=== PATIENT | female | born 1955 | race Caucasian/White ===

== ENCOUNTER → 2018-01-15 | Outpatient (CLI) | payer OTHER ==
--- NOTE | 2018-01-17 13:00 | MM ---
Reason for exam: screening (asymptomatic). Last mammogram was performed 4 years and 9 months ago. History: Patient is postmenopausal. Family history of breast cancer in sister at age 44. Physical Findings: A clinical breast exam by your physician is recommended on an annual basis and results should be correlated with mammographic findings. MG Screening Mammo w CAD Bilateral CC and MLO view(s) were taken. Prior study comparison: April 21, 2013, left diagnostic mammogram w/CAD. October 16, 2012, [facility] DIGITAL LEFT BREAST MAMMOGRAM w/CAD. October 09, 2012, bilateral digital screening mammo w/CAD. May 15, 2011, bilateral digital screening mammo w/CAD. There are scattered fibroglandular densities. Asymmetric density central right MLO view is more defined. ASSESSMENT: Incomplete: need additional imaging evaluation, BI-RAD 0 RECOMMENDATION: Special view mammogram of the right breast. If lesion persists on supplemental views, image directed ultrasound is recommended. [facility] will attempt to contact patient to return for supplemental views and ultrasound if indicated.
== END | disposition home or self-care (01) ==
LOC: RADMAMWWP 07:40
PROVIDERS: ATTEND Obstetrics & Gynecology
DX: Z12.31 Encounter for screening mammogram for malignant neoplasm of breast (principal)
CPT/HCPCS: 77067

== ENCOUNTER → 2018-01-18 | Outpatient (CLI) | payer OTHER ==
--- NOTE | 2018-01-18 11:03 | MM ---
Reason for exam: additional evaluation requested from abnormal screening. Last mammogram was performed less than 1 month ago. History: Patient is postmenopausal. Family history of breast cancer in sister at age 44. Physical Findings: Nurse did not find any significant physical abnormalities on exam. MG Work Up Mamm w CAD RT CC and MLO view(s) were taken of the right breast. Technologist: Sarita Arciniega, RT (R)(M) Prior study comparison: January 15, 2018, bilateral MG screening mammo w CAD. April 21, 2013, left diagnostic mammogram w/CAD. The breast tissue is heterogeneously dense. This may lower the sensitivity of mammography. Finding: There is a suspicious, equal, spiculated architectural distortion located 3 cm from the nipple in the upper quadrant, middle position of the right breast. New finding since April 21, 2013. These results were verbally communicated with the patient and result sheet given to the patient on 01/18/18. ASSESSMENT: Suspicious, BI-RAD 4 RECOMMENDATION: Stereotactic core biopsy of the right breast. Called Dr. March with mammographic findings and has scheduled an appointment for the patient for 01/24/18 at 3:[address] Valles. PRELIMINARY REPORT CALLED AND FAXED TO DR. VALLES ON 01/18/18.
== END ==
LOC: RADMAMWWP 07:25
PROVIDERS: ATTEND Obstetrics & Gynecology
DX: R92.8 Other abnormal and inconclusive findings on diagnostic imaging of breast (principal)
CPT/HCPCS: 77065

== ENCOUNTER → 2018-02-07 | Day surgery (SDC) | payer OTHER ==
[2018-02-07 09:33] VITALS: BP 125/85; PULSE 74; RESP 16; TEMP 98.4; BMI 27.9
--- NOTE | 2018-02-07 16:31 | MM ---
EXAMINATION TYPE: MG discontinued stereo core RT DATE OF EXAM: 02/07/2018 COMPARISON: 01/18/2018, 01/15/2018 mammograms CLINICAL HISTORY: Abnormal mammogram, single view TECHNIQUE: Prepped for Stereotactic guided core biopsy of right breast. FINDINGS: The procedure of stereotactic guided core biopsy was explained to the patient. Benefits, a lternatives, and risks were discussed. An informed consent was then obtained. A time out was performed. The region of interest was examined. Multiple attempts to localize a distortion of the medial lateral projections was performed. A persistent suspicious area could not be identified. No targeting could be performed. Procedure was terminated prior to skin incision. This was discussed with the patient. A precautionary follow-up right breast mammogram in 6 months be recommended. IMPRESSION: 1. Unsuccessful stereotactic core biopsy. Unable to identify abnormality by stereotactic projections. Recommendations: 1. Precautionary follow-up right breast mammogram 2 views in 3-D in 6 months. 2. Patient should continue monthly self breast exam.
== END ==
LOC: RADMAMWWP 09:08
PROVIDERS: ATTEND Surgery
DX: Z53.8 Procedure and treatment not carried out for other reasons (principal); R92.8 Other abnormal and inconclusive findings on diagnostic imaging of breast

== ENCOUNTER 2018-04-17 08:53 | Day surgery (SDC) | payer OTHER ==
[2018-04-15 11:28] VITALS: BMI 27.3
[~2018-04-17 08:53] MED LIST: DEXAMETHASONE SOD PHOSPHATE 10 MG/ML 1 ML VIAL IV ONE; DEXAMETHASONE SOD PHOSPHATE 4 MG/ML 1 ML VIAL IV ONE; FAMOTIDINE 20 MG/2 ML VIAL IV ONE; LACTATED RINGERS 1,000 ML IV SCH; LIDOCAINE 1% 20 ML VIAL (10MG/ML) FOR IV START INTRADERMA PRN; ONDANSETRON 4 MG/2 ML VIAL IVP ONE; SCOPOLAMINE 1.5MG/72HR PATCH TRANSDERM ONE; ceFAZolin 1,000 MG in DEXTROSE/WATER 1 50ML.BAG IV ONE
[2018-04-17] MEDS: OXYMETAZOLINE 0.05% NASL SPRAY 1 SPRAY BOTTLE NASAL ONE ×5 (09:50→10:21)
[2018-04-17 10:01] LABS: Glucose,Whole Blood 87 mg/dL (75-99)
[2018-04-17] MEDS ORDERED: PROPOFOL 10 MG/ML 20 ML VIAL IV ONE (11:03)
[2018-04-17] MEDS ORDERED: SUCCINYLCHOLINE CHLORIDE 100 MG/5 ML SYR IV ONE (11:03)
[2018-04-17] MEDS ORDERED: LIDOCAINE 1% INJ 10MG/ML (20 ML MDV) ONE (11:03)
[2018-04-17] MEDS ORDERED: fentaNYL (PF) 50 MCG/ML 2 ML AMP ONE (11:03)
[2018-04-17] MEDS ORDERED: MIDAZOLAM 2 MG/2 ML VIAL ONE (11:03)
[2018-04-17] MEDS ORDERED: LIDOCAINE 1%-EPI 1:100,000 20 ML VIAL SQ ONE (11:26)
[2018-04-17] MEDS ORDERED: BACITRACIN 500 UNIT/GM OINT 28.4 GM TUBE TOPICAL ONE (11:26)
--- NOTE | 2018-04-17 12:27 | P.OP ---
Date of Procedure: 04/17/18 Preoperative Diagnosis: Deviated nasal septum Inferior turbinate hypertrophy Chronic sinusitis Sinonasal polyposis Postoperative Diagnosis: Same Procedure(s) Performed: Septoplasty Outfracture and submucous resection of the inferior turbinates Bilateral endoscopic sinus surgery with polypectomy including bilateral maxillary antrostomy with removal of tissue from the maxillary sinuses, bilateral anterior posterior ethmoidectomy, bilateral sphenoidotomy with exploration and bilateral frontal sinusotomy with exploration Anesthesia: TONYA Surgeon: Eddie Gibbons Estimated Blood Loss (ml): 20 Pathology: other (Nasal septal bone and cartilage and sinus contents) Condition: stable Disposition: PACU Indications for Procedure: This is a 63-year-old white female whose had difficulties with chronic nasal airway obstruction and congestion as well as decreased sense of smell and recurrent sinusitis. She has a deviated septum as well as chronic sinusitis based on history and computed tomography scan Operative Findings: Nasal septum deviated to the left anteriorly to the right posteriorly there are moderate size polyps in the middle meatus bilaterally as well as inferior turbinate hypertrophy bilaterally Description of Procedure: The patient was brought in the operative suite and placed in a supine position. The patient underwent induction of general anesthesia with oral endotracheal intubation without difficulty. The patient was prepped and draped in usual aseptic fashion. Orbits were in the operating field for monitoring throughout the case and the computed tomography scan was on the computer screen for review throughout the case also. 1% lidocaine with 1-100,000 epinephrine was infused subcu closely both sides nasal septum as well as lateral nasal wall bilaterally and anterior tips the middle turbinates bilaterally. While this was taking vasoconstrictive effect the inferior turbinates were infractured with [place] elevator partial submucous resection inferior turbinates performed with Coblator this ablating a portion of the submucosal soft tissue and then outfractured with the [place] elevator. A left hemitransfixion incision was made with the mucoperichondrial and mucoperiosteal flap on the left elevated. Bony cartilaginous junction was disarticulated and the mucoperiosteal flap on the right was elevated. Bony nasal septal deformities were removed Maranda forceps. An inferior cartilaginous strip was removed leaving a full 1.5 cm caudal strut. Checking intranasally this corrected the nasoseptal deformities and the hemitransfixion incision was closed with running 4-0 chromic suture. Full 0 endoscopic examination is performed bilaterally. Beginning on the left the middle turbinate was medialized with a [place] elevator. The gross polyps were debrided with microdebrider. Maxillary ostium was located with a ballpoint probe and infundibulotomy was performed followed by uncinectomy. The maxillary ostium was enlarged at the expense anterior and posterior fontanelle taking care anteriorly not to injure the lacrimal bone. The anterior posterior ethmoidectomy were then performed to the level skull base including polypectomy. Polyps were removed from the maxillary sinuses with giraffe forceps under endoscopic visualization also. Bilateral frontal sinusotomy was removed and dilator as well as sphenoidotomy. The sinuses were explored. There was mucosal thickening but no masses or polyps noted. Attention was then turned to the right where the procedures were followed as they were on the left including medialization middle turbinate infundibulotomy uncinectomy max antrostomy with removal of tissue from the maxillary sinuses anterior posterior ethmoidectomy frontal sinusotomy and sphenoidotomy with exploration of all sinuses. Once this was completed a small pledget of standard nasal pore nasal dressing was placed the middle meatus under direct visualization bilaterally. Bilateral Cope airway splint coated bacitracin ointment were placed in nasal cavities and sutured trans-septally with a 4-0 nylon suture. Patient was then suctioned in oral gastric fashion. Patient was then allowed to emerge from general anesthesia and was extubated in the operating suite and transferred to postop recovery area in satisfactory condition.
[2018-04-17] MEDS: HYDROmorphone 1 MG/ML 1 ML SYRINGE IVP PRN ×2 (12:32→12:38)
[2018-04-17 12:37] VITALS: TEMP 97.7
[2018-04-17 13:33] VITALS: RESP 16
[2018-04-17] MEDS ORDERED: HYDROcodone/APAP 5-325MG 1 EACH TAB PO ONE (13:54)
[2018-04-17 14:29] VITALS: BP 127/80; PULSE 70
== END 2018-04-17 14:59 | disposition home or self-care (01) ==
LOC: OR 08:53
PROVIDERS: ATTEND Otolaryngology
DX: J34.2 Deviated nasal septum (principal); J34.3 Hypertrophy of nasal turbinates; J32.8 Other chronic sinusitis; J33.8 Other polyp of sinus; J45.909 Unspecified asthma, uncomplicated; Z79.51 Long term (current) use of inhaled steroids; Z79.52 Long term (current) use of systemic steroids; Z79.899 Other long term (current) drug therapy; Z88.1 Allergy status to other antibiotic agents
CPT/HCPCS: 88305; 88300; 30520; 30140; 31267; 31257; 31276; J2250; J1100; J2405; J2001; J3010; J1170; J0690; J0330; J2704

== ENCOUNTER 2018-06-15 13:54 | Emergency (ER) | payer OTHER ==
[2018-06-15 13:59] VITALS: TEMP 98.3
--- NOTE | 2018-06-15 15:00 | XR ---
EXAMINATION TYPE: XR chest 2V DATE OF EXAM: 06/15/2018 COMPARISON: Chest CT performed on 09/21/2015 HISTORY: Shortness of breath and cough TECHNIQUE: Frontal and lateral views of the chest are obtained. FINDINGS: Linear bibasilar opacities suggest atelectasis. Cardia mediastinal silhouette is upper saldaña its of normal size. No pleural effusion or pneumothorax is seen. Osseous structures are grossly intac t. IMPRESSION: Linear bibasilar opacities suggest atelectasis.
[2018-06-15] MEDS ORDERED: IPRATROPIUM-ALBUTEROL 3 ML NEB INHALATION STA (15:21)
[2018-06-15] MEDS ORDERED: methylPREDNISolone SOD SUCCI 125 MG/2 ML VIAL IM STA (15:56)
[2018-06-15] MEDS ORDERED: predniSONE 50 MG TAB PO STA (16:07)
--- NOTE | 2018-06-15 17:10 | ED ---
General Adult HPI - General Chief complaint: Shortness of Breath Stated complaint: PERNELL Time Seen by Provider: 06/15/18 14:20 Source: patient, RN notes reviewed, old records reviewed Mode of arrival: ambulatory Limitations: no limitations - History of Present Illness Initial comments: 63-year-old female patient past medical history of asthma presents to ED. Patient reports that at home she was walking in the cold weather and she began coughing, patient reports that after coughing she felt somewhat short of breath and checked her home pulse ox. Patient reports that she had desaturated to approximately 86%. Patient then used her albuterol inhaler and her pulse ox saturation increased to normal limits. Patient reported to ED for further evaluation. Patient currently denies chest pain, pleuritic chest pain, abdominal pain, nausea vomiting diarrhea. Patient reports that she has not been coughing with exception of earlier today, has not been coughing since. Patient states that she has a small amount of residual shortness of breath but feels much better than earlier today. Patient denies all other complaints. Systemic: Pt denies fatigue, myalgia, fever/chills, rash. Pt denies weakness, night sweats, weight loss. Neuro: Pt denies headache, visual disturbances, syncope or pre-syncope. HEENT: Pt denies ocular discharge or irritation, otalgia, rhinorrhea, pharyngitis or notable lymphadenopathy. Cardiopulmonary: Pt denies chest pain, heart palpitations, dyspnea on exertion. Abdominal/GI: Pt denies abdominal pain, n/v/d. : Pt denies dysuria, burning w/ urination, frequency/urgency. Denies new onset urinary or bowel incontinence. MSK: Pt denies myalgia, loss of strength or function in extremities. Neuro: Pt denies new onset weakness, paresthesias. - Related Data Home Medications Medication Instructions Recorded Confirmed Fluticasone/Salmeterol [Advair 1 inhalation PO BID 04/15/18 04/17/18 250-50 Diskus] Low Dose Steroid(Unknown Name) 1 tab PO DAILY 04/15/18 04/17/18 Previous Rx's Medication Instructions Recorded Albuterol Inhaler [Ventolin Hfa 1 - 2 puff INHALATION Q4-6H PRN #1 06/15/18 Inhaler] inhaler Albuterol Nebulized [Ventolin 2.5 mg INHALATION Q4H PRN 10 Days 06/15/18 Nebulized] nebu predniSONE 50 mg PO DAILY #4 tab 06/15/18 Allergies Allergy/AdvReac Type Severity Reaction Status Date / Time levofloxacin [From Levaquin] Allergy Rash/Hives Verified 06/15/18 13:59 Review of Systems ROS Statement: Those systems with pertinent positive or pertinent negative responses have been documented in the HPI. ROS Other: All systems not noted in ROS Statement are negative. Past Medical History Past Medical History: Asthma, Pneumonia Additional Past Medical History / Comment(s): Hx pneumonia 3 yrs ago. History of Any Multi-Drug Resistant Organisms: None Reported Past Surgical History: No Surgical Hx Reported Additional Past Surgical History / Comment(s): Bronchoscopy, colonoscopy. Past Anesthesia/Blood Transfusion Reactions: No Reported Reaction Past Psychological History: No Psychological Hx Reported Smoking Status: Never smoker Past Alcohol Use History: None Reported Past Drug Use History: None Reported - Past Family History Father Family Medical History: Cancer Additional Family Medical History / Comment(s): Lung cancer. Mother Family Medical History: Hypertension, Renal Disease Additional Family Medical History / Comment(s): Living, 87 yrs old. General Exam - General Exam Comments Initial Comments: Constitutional: NAD, AOX3, Pt has pleasant affect. HEENT: NC/AT, trachea midline, neck supple, no lymphadenopathy. Posterior pharynx non erythematous, without exudates. External ears appear normal, without discharge. Mucous membranes moist. Eyes PERRLA, EOM intact. There is no scleral icterus. No pallor noted. Cardiopulmonary: RRR, no murmurs, rubs or gallops, no JVD noted. Mild wheezing noted in anterior cherry, resolved after breathing treatment. Lungs clear to auscultation bilaterally after breathing treatment. No peripheral edema. Abdominal exam: Abdomen soft and non-distended. Abdomen non-tender to palpation in all 4 quadrants. Bowel sounds active in LLQ. No hepatosplenomegaly. No ecchymosis Neuro: CN II-XII grossly intact. No nuchal rigidity. MSK: No posterior calf tenderness bilaterally, homans sign negative bilaterally. Posterior tibialis and radial pulse +2 bilaterally. Sensation intact in upper and lower extremities. Full active ROM in upper and lower extremities, 5/5 stregnth. Limitations: no limitations Course Vital Signs 06/15/18 06/15/18 06/15/18 13:55 15:47 15:54 Temperature 98.3 F Pulse Rate 70 70 74 Respiratory 20 Rate Blood Pressure 153/80 O2 Sat by Pulse 95 Oximetry Medical Decision Making - Medical Decision Making 63-year-old female patient presents to ED after sustaining a coughing and desaturation episode earlier today likely secondary to bronchospasm. Upon presenting to ED her symptoms had improved. Patient did still have a small amount of residual shortness of breath. Patient's initial vital signs were stable, O2 saturation of 95. Physical exam did display some wheezing in anterior cherry, resolved after breathing treatment. After breathing treatment patient states that she feels at baseline, no longer has any shortness breath. Patient continues to deny all other review of systems. Chest x-ray displayed atelectasis, a finding previously known to patient. Ambulatory O2 saturation displayed patient drop too 91% sp02 during brisk walking, pt states that she does not feel short of breath. Patient administered prednisone in ED. Patient to be discharged with close outpatient follow-up with her breaker engineer. Patient to follow up with PCP in 1-2 days. Patient to return to ED if new signs or symptoms develop or if condition worsens in anyway, strict return for precautions patient verbalizes understanding. Case discussed in depth with Dr. Rene. Disposition Clinical Impression: Asthma exacerbation Disposition: HOME SELF-CARE Condition: Stable Instructions (If sedation given, give patient instructions): Asthma (ED), Bronchospasm (ED) Additional Instructions: Patient to adhere to previously discussed treatment plan and will take medication(s) as directed. Patient to follow up with PCP in 1-2 days. Patient to return to ED if symptoms do not improve. Please follow up with breaker engineer tomorrow Please follow up with PCP tomorrow Return to ED if condition worsens in anyway Prescriptions: Albuterol Inhaler [Ventolin Hfa Inhaler] 1 - 2 puff INHALATION Q4-6H PRN #1 inhaler PRN Reason: Cough Albuterol Nebulized [Ventolin Nebulized] 2.5 mg INHALATION Q4H PRN 10 Days nebu PRN Reason: Cough predniSONE 50 mg PO DAILY #4 tab Is patient prescribed a controlled substance at d/c from ED?: No Referrals: Angela Lopez MD [Primary Care Provider] - 1-2 days Haider Larose MD [STAFF PHYSICIAN] - 1-2 days Time of Disposition: 17:14
[2018-06-15 17:18] VITALS: BP 139/81; PULSE 90; RESP 18
== END 2018-06-15 17:20 | disposition home or self-care (01) ==
LOC: EC 13:54
DX: J45.901 Unspecified asthma with (acute) exacerbation (principal); Z79.51 Long term (current) use of inhaled steroids; Z79.899 Other long term (current) drug therapy; Z88.1 Allergy status to other antibiotic agents; Z87.01 Personal history of pneumonia (recurrent); Z98.890 Other specified postprocedural states
CPT/HCPCS: 94640; 71046; 99285; J7512

== ENCOUNTER → 2018-07-19 | Outpatient (CLI) | payer OTHER ==
--- NOTE | 2018-07-19 08:53 | MM ---
Reason for exam: follow-up at short interval from prior study. Last mammogram was performed 6 months ago. History: Patient is postmenopausal. Family history of breast cancer in sister at age 44. MG discontinued stereo core RT of the right breast, February 07, 2018. Physical Findings: Nurse did not find any significant physical abnormalities on exam. MG 3D Diag Mammo W/Cad RT CC and MLO view(s) were taken of the right breast. Prior study comparison: January 18, 2018, right breast MG work up mamm w CAD RT. January 15, 2018, bilateral MG screening mammo w CAD. There are scattered fibroglandular densities. There is no discrete abnormality. No significant new findings when compared with previous films. These results were verbally communicated with the patient and result sheet given to the patient on 07/19/18. ASSESSMENT: Benign, BI-RAD 2 RECOMMENDATION: Return to routine screening mammogram schedule for both breasts. Back on schedule.
== END | disposition home or self-care (01) ==
LOC: RADMAMWWP 08:05
PROVIDERS: ATTEND Obstetrics & Gynecology
DX: R92.8 Other abnormal and inconclusive findings on diagnostic imaging of breast (principal)
CPT/HCPCS: 77061; 77065

== ENCOUNTER → 2018-12-04 | Outpatient (CLI) | payer BC | END | disposition home or self-care (01) | LOC: LABWHC1 15:26 | PROVIDERS: ATTEND Internal Medicine Critical Care Medicine | DX: J33.0 Polyp of nasal cavity (principal); J45.909 Unspecified asthma, uncomplicated | CPT/HCPCS: 36415; 85008 ==

== ENCOUNTER → 2020-10-25 | Outpatient (CLI) | payer BC ==
--- NOTE | 2020-10-26 11:05 | MM ---
Reason for exam: screening (asymptomatic). Last mammogram was performed 2 years and 3 months ago. History: Patient is postmenopausal. Family history of breast cancer in sister at age 44. MG discontinued stereo core RT of the right breast, February 07, 2018. Physical Findings: A clinical breast exam by your physician is recommended on an annual basis and results should be correlated with mammographic findings. MG 3D Screening Mammo W/Cad Bilateral CC and MLO view(s) were taken. Prior study comparison: July 19, 2018, right breast MG 3d diag mammo w/cad RT. January 18, 2018, right breast MG work up mamm w CAD RT. The breast tissue is heterogeneously dense. This may lower the sensitivity of mammography. There is no discrete abnormality. No significant changes when compared with prior studies. ASSESSMENT: Negative, BI-RAD 1 RECOMMENDATION: Routine screening mammogram of both breasts in 1 year.
== END | disposition home or self-care (01) ==
LOC: RADMAMWWP 13:03
PROVIDERS: ATTEND Family Medicine
DX: Z12.31 Encounter for screening mammogram for malignant neoplasm of breast (principal); Z78.0 Asymptomatic menopausal state; Z80.3 Family history of malignant neoplasm of breast
CPT/HCPCS: 77063; 77067

== ENCOUNTER → 2021-10-26 | Outpatient (CLI) | payer MEDICARE ==
--- NOTE | 2021-10-26 14:59 | BD ---
EXAMINATION TYPE: Axial Bone Density DATE OF EXAM: 10/26/2021 COMPARISON: NONE CLINICAL HISTORY: 66 years year old Female. ICD-10 CODE: Z13.820 OSTEOPOROSIS Height: 5 FT 1/2 IN Weight: 143 FRAX RISK QUESTIONS: Alcohol (3 or more units per day): NO Family History (Parent hip fracture): NO Glucocorticoids (More than 3mos): NO (Ex: prednisone, prednisolone, methylprednisolone, dexamethasone, and hydrocortisone). History of Fracture in Adulthood: NO Secondary Osteoporosis: 1. Type 1 Diabetes: NO 2. Hyperthyroidism: NO 3. Menopause before 45: NO 4. Malnutrition: NO 5. Chronic liver disease: NO Rheumatoid Arthritis: NO Current Tobacco Use: NO RISK FACTORS HISTORY OF: Surgery to Spine/Hip(right/left)/Wrist (right/left): NO Family History of Osteoporosis: NO Active: YES Diet low in dairy products/other sources of calcium: NO Postmenopausal woman: YES Take estrogen and/or progesterone medications: NO Lost more than 2 inches in height since high school: NO Frequent falls: NO Poor Health: GOOD Hyperparathyroidism: NO Adrenal Insufficiency: NO MEDICATIONS: Additional Medications: ADVAIR Additional History: EXAM MEASUREMENTS: Bone mineral densitometry was performed using the Electronifie System. Bone mineral density as measured about the Lumbar spine is: ----- L1-L4(G/cm2): 1.093 T Score Values are as follows: ----- L1: -1.5 ----- L2: -0.7 ----- L3: -0.4 ----- L4: -0.7 ----- L1-L4: -0.7 BASELINE Bone mineral density about the R hip (g/cm2): 0.715 Bone mineral density about the L hip (g/cm2): 0.746 T Score values are as follows: -----R Neck: -2.3 -----L Neck: -2.1 -----R Total: -1.5 -----L Total: -1.4 BASELINE FRAX%s: The graph provided illustrates a 12.4 % chance for a major osteoporotic fx and a 2.4 % chance for the hips probability for fx in 10 years time. IMPRESSION: Osteopenia NOTE: T-SCORE=SD OF THE YOUNG ADULT MEAN.
--- NOTE | 2021-10-27 16:50 | MM ---
Reason for Exam: Screening (asymptomatic). Last screening mammogram was performed 12 month(s) ago. Patient History: Menarche at age 15. First Full-Term at age 23. Postmenopausal. 02/07/2018, MG discontinued stereo core RT on the right side. Sister had breast cancer, age 44. Risk Values: Tootie 5 year model risk: 2.9%. NCI Lifetime model risk: 10.7%. Prior Study Comparison: 01/18/2018 Right Diagnostic Mammogram, [facility]. 07/19/2018 Right Diagnostic Mammogram, [facility]. 10/25/2020 Bilateral Screening Mammogram, [facility]. Tissue Density: There are scattered fibroglandular densities. Findings: Analyzed By CAD. Scattered benign punctate calcifications are present bilaterally. No suspicious groups of microcalcifications, spiculated or lobular masses, architectural distortion or other secondary signs of malignancy are mammographically apparent. Overall Assessment: Benign, BI-RAD 2 Management: Screening Mammogram of both breasts in 1 year. A negative mammogram report should not preclude additional follow up of suspicious palpable abnormalities. Patient should continue monthly self breast exam. A clinical breast exam by your physician is recommended on an annual basis and results should be correlated with mammographic findings. Electronically signed and approved by: Mo Chery D.O. Radiologis
== END | disposition home or self-care (01) ==
LOC: RADMAMWWP 13:39
PROVIDERS: ATTEND Family Medicine
DX: Z12.31 Encounter for screening mammogram for malignant neoplasm of breast (principal); M85.89 Other specified disorders of bone density and structure, multiple sites; Z78.0 Asymptomatic menopausal state; Z80.3 Family history of malignant neoplasm of breast
CPT/HCPCS: 77063; 77067; 77080

== ENCOUNTER → 2022-12-26 | Outpatient (CLI) | payer MEDICARE ==
--- NOTE | 2022-12-27 13:50 | MM ---
Reason for Exam: Screening (asymptomatic). Last mammogram was performed 1 year(s) and 2 month(s) ago. Patient History: Menarche at age 15. First Full-Term at age 23. Postmenopausal. Patient has history of breast feeding. 02/07/2018, MG discontinued stereo core RT on the right side. Sister had breast cancer, age 44. Risk Values: Tootie 5 year model risk: 2.9%. NCI Lifetime model risk: 10.3%. Prior Study Comparison: 07/19/2018 Right Diagnostic Mammogram, [facility]. 10/25/2020 Bilateral Screening Mammogram, [facility]. 10/26/2021 Bilateral MG 3D screening mammo w/cad, [facility]. Tissue Density: The breast tissue is heterogeneously dense. This may lower the sensitivity of mammography. Findings: Analyzed By CAD. There is no suspicious group of microcalcifications or new suspicious mass in either breast. Overall Assessment: Benign, BI-RAD 2 Management: Screening Mammogram of both breasts in 1 year. . Patient should continue monthly self-breast exams. A clinical breast exam by your physician is recommended on an annual basis. This exam should not preclude additional follow-up of suspicious palpable abnormalities. Note on Tootie scores and lifetime risk: 1. A Tootie score greater than 3% is considered moderate risk. If this is the case, consider specialist referral to assess eligibility for a risk reducing agent. 2. If overall lifetime risk for the development of breast cancer is 20% or higher, the patient may qualify for future screening with alternating mammogram and breast MRI. Electronically signed and approved by: Ryan Herbert M.D. Radiologis
== END | disposition home or self-care (01) ==
LOC: RADMAMWWP 16:49
PROVIDERS: ATTEND Family Medicine
DX: Z12.31 Encounter for screening mammogram for malignant neoplasm of breast (principal); Z78.0 Asymptomatic menopausal state; Z80.3 Family history of malignant neoplasm of breast
CPT/HCPCS: 77063; 77067

== ENCOUNTER → 2024-02-27 | Outpatient (CLI) | payer MEDICARE ==
--- NOTE | 2024-02-28 18:12 | MM ---
Reason for Exam: Screening (asymptomatic). Last mammogram was performed 1 year(s) and 2 month(s) ago. Patient History: Menarche at age 15. First Full-Term at age 23. Postmenopausal. Patient has history of breast feeding. 02/07/2018, MG discontinued stereo core RT on the right side. Sister had breast cancer, age 44. Risk Values: Tootie 5 year model risk: 3.0%. NCI Lifetime model risk: 9.5%. Prior Study Comparison: 10/25/2020 Bilateral Screening Mammogram, [facility]. 10/26/2021 Bilateral MG 3D screening mammo w/cad, [facility]. 12/26/2022 Bilateral MG 3D screening mammo w/cad, [facility]. Tissue Density: The breasts are heterogeneously dense, which may obscure small masses. Findings: Analyzed By CAD. Benign bilateral oil cyst calcifications as well as areas of asymmetric density. There is no suspicious group of microcalcifications or new suspicious mass in either breast. Overall Assessment: Benign, BI-RAD 2 Management: Screening Mammogram of both breasts in 1 year. See note below in regards to the patient's increased 5 year Tootie score. Patient should continue monthly self-breast exams. A clinical breast exam by your physician is recommended on an annual basis. This exam should not preclude additional follow-up of suspicious palpable abnormalities. Note on Tootie scores and lifetime risk: 1. A Tootie score greater than 3% is considered moderate risk. If this is the case, consider specialist referral to assess eligibility for a risk reducing agent. 2. If overall lifetime risk for the development of breast cancer is 20% or higher, the patient may qualify for future screening with alternating mammogram and breast MRI. [facility], , 02/28/2024 6:09 PM. Electronically signed and approved by: Bunny Pinedo M.D. Radiologist
== END | disposition home or self-care (01) ==
LOC: RADMAMWWP 10:44
PROVIDERS: ATTEND Family Medicine
CPT/HCPCS: 77063; 77067